=== PATIENT | female | born 1950 | race Caucasian/White ===

== ENCOUNTER 2018-11-06 14:25 | Outpatient (CLI) | payer OTHER | END 2018-11-06 14:31 | disposition home or self-care (01) | LOC: SONOGRAMA 14:25 → MAMO-SONO 15:15 | DX: E03.4 Atrophy of thyroid (acquired) (principal) ==

== ENCOUNTER 2019-03-06 12:37 | Outpatient (CLI) | payer OTHER | END 2019-03-06 15:53 | disposition home or self-care (01) | LOC: NUCLEAR 12:37 | DX: M85.80 Other specified disorders of bone density and structure, unspecified site (principal); M81.0 Age-related osteoporosis without current pathological fracture ==

== ENCOUNTER → 2020-10-08 10:10 | Outpatient (CLI) | payer OTHER | END | disposition home or self-care (01) | LOC: LAB 10:10 | PROVIDERS: ATTEND Internal Medicine Hematology & Oncology | DX: E06.3 Autoimmune thyroiditis (principal); E03.8 Other specified hypothyroidism; R76.0 Raised antibody titer; M05.00 Felty's syndrome, unspecified site; M32.8 Other forms of systemic lupus erythematosus ==

== ENCOUNTER 2022-07-09 07:42 | Outpatient (CLI) | payer OTHER | END 2022-07-09 08:04 | disposition home or self-care (01) | LOC: SONOGRAMA 07:42 | PROVIDERS: ATTEND Internal Medicine Gastroenterology | DX: R10.9 Unspecified abdominal pain (principal) ==

== ENCOUNTER 2023-01-05 13:03 | Outpatient (CLI) | payer OTHER | END 2023-01-05 14:00 | disposition home or self-care (01) | LOC: SONOGRAMA 13:03 | PROVIDERS: ATTEND Internal Medicine Endocrinology, Diabetes & Metabolism | DX: E04.1 Nontoxic single thyroid nodule (principal) ==

== ENCOUNTER 2023-05-03 13:49 | Outpatient (CLI) | payer OTHER | END 2023-05-03 13:56 | disposition home or self-care (01) | LOC: TOM 13:49 | PROVIDERS: ATTEND Specialist | DX: K63.89 Other specified diseases of intestine (principal) ==

== ENCOUNTER 2023-08-24 09:31 | Outpatient (CLI) | payer OTHER | END 2023-08-24 09:40 | disposition home or self-care (01) | LOC: MAMO-SONO 09:31 | DX: N64.4 Mastodynia (principal); Z12.31 Encounter for screening mammogram for malignant neoplasm of breast ==

== ENCOUNTER 2024-06-06 09:15 | Outpatient (CLI) | payer OTHER | END 2024-06-06 09:22 | disposition home or self-care (01) | LOC: SONOGRAMA 09:15 | DX: G57.61 Lesion of plantar nerve, right lower limb (principal) ==